=== PATIENT | male | born 1980 | race Caucasian/White ===

== ENCOUNTER 2020-06-19 15:00 | Emergency (ER) | payer OTHER ==
[~2020-06-19] VITALS: Ht 172.7 cm; Wt 110.8 kg
--- NOTE | 2020-06-19 15:01 | NUR ---
Pt ambulated to ER bed 11.
[2020-06-19 15:06] VITALS: BP 129/79
--- NOTE | 2020-06-19 15:16 | NUR ---
39 Y/O MALE C/O INTERMITENT LEFT CHEST PAIN NON RADIATING X 2 WEEKS. DENIES TRAUMA. PT STATES IT "FELT LIKE A POP" THEN GOES AWAY. PT STATES HE FEELS SOB THAT IS WORSE WHEN HE TAKES DEEP BREATHS. DENIES N/V/ RECENT STRESS. PMH: DENIES NKA
[2020-06-19] MEDS ORDERED: KETOROLAC 60 MG/2 ML VIAL IM ONE (15:30)
--- NOTE | 2020-06-19 15:35 | NUR ---
JOSÉ MIGUEL LAMAR AT PT BEDSIDE FOR FURTHER EVALUATION
--- NOTE | 2020-06-19 15:39 | NUR ---
XRAY AT PT BEDSIDE
[2020-06-19 16:07] VITALS: BP 129/79
--- NOTE | 2020-06-19 16:09 | NUR ---
Patient discharged with v/s stable. Written and verbal after care instructions given and explained. Patient alert, oriented and verbalized understanding of instructions. Ambulatory with steady gait. All questions addressed prior to discharge. ID band removed. Patient advised to follow up with PMD. Rx of robaxin 750 mg 1 tab PO QID PRN and naprosyn 500 mg tab PO BID PRN given. Patient educated on indication of medication including possible reaction and side effects. Opportunity to ask questions provided and answered.
== END 2020-06-19 16:04 | disposition home or self-care (01) ==
LOC: MED 15:00
DX: M94.0 Chondrocostal junction syndrome [Tietze] (principal)
CPT/HCPCS: 71045; 93005; 96372; 99283; J1885

== ENCOUNTER 2023-02-28 10:03 | Emergency (ER) | payer OTHER ==
[~2023-02-28] VITALS: Ht 172.7 cm; Wt 129.0 kg
[2023-02-28 10:19] VITALS: BP 132/77; PULSE 81; RESP 20; TEMP 97.7; O2SAT 95
[2023-02-28] MEDS ORDERED: LIDOCAINE 5% 1 EA PATCH TP SCH (10:55)
[2023-02-28] MEDS ORDERED: KETOROLAC 30 MG/ML VIAL IM ONE (10:55)
[2023-02-28] MEDS ORDERED: predniSONE 20 MG TAB PO ONE (10:55)
[2023-02-28] MEDS ORDERED: GABAPENTIN 300 MG CAP PO ONE (10:55)
[2023-02-28] MEDS ORDERED: ACET-10509 PO (11:03)
[2023-02-28] MEDS ORDERED: LID5T TP (11:03)
[2023-02-28] MEDS ORDERED: PRED20TA5 PO (11:03)
[2023-02-28] MEDS ORDERED: BACL10TA4 PO (11:03)
[2023-02-28] MEDS ORDERED: GABA300C PO (11:03)
[2023-02-28 11:35] VITALS: BP 119/68; PULSE 62; RESP 17; TEMP 97.7; O2SAT 97
== END 2023-02-28 11:37 | disposition home or self-care (01) ==
LOC: MED 10:03
DX: M54.41 Lumbago with sciatica, right side (principal); Z79.899 Other long term (current) drug therapy
CPT/HCPCS: 96372; 99284; J1885; J7512